=== PATIENT | male | born 1960 | race Caucasian/White ===

== ENCOUNTER 2016-06-11 14:20 | Inpatient (IN) | payer OTHER ==
[~2016-06-11] VITALS: Ht 188 cm; Wt 115.9 kg
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
[2016-06-11 15:28] LABS: BASOPHIL % 0.2 %; EOSINOPHIL % 0.1 %; HEMATOCRIT 33.9 % (37.0-53.0); HEMOGLOBIN 10.9 g/dL (12.0-17.0); IMMATURE GRANULOCYTE # 0.1 K/uL (0.0-0.3); IMMATURE GRANULOCYTE % 0.7 %; LYMPHOCYTE # 1.3 K/uL (0.8-4.0); LYMPHOCYTE % 6.4 %; MCH 31.8 pg (27.0-34.0); MCHC 32.2 gm/dL (32.0-36.5); MCV 98.8 fl (83.0-98.0); MONOCYTE # 1.8 K/uL (0.0-1.0); MONOCYTE % 8.9 %; MPV 10.3 fl (9.4-12.4); NEUTROPHIL # (ANC) 16.7 K/uL (1.4-9.0); NEUTROPHIL % 83.7 %; NRBC % 0 /100WBC (0-0.00); PLATELET COUNT 178 K/uL (150-450); RBC 3.43 M/uL (4.00-6.00); RDW-CV 12.5 % (11.9-14.6); WBC 19.9 K/uL (4.0-11.0)
[2016-06-11 15:33] LABS: BILIRUBIN URINE NEGATIVE (NEGATIVE); BLOOD URINE NEGATIVE /UL (NEGATIVE); COLOR URINE YELLOW (YELLOW); GLUCOSE URINE NEGATIVE (NEGATIVE); KETONE URINE NEGATIVE (NEGATIVE); LEUKOCYTES URINE NEGATIVE /UL (NEGATIVE); NITRITE URINE NEGATIVE (NEGATIVE); PROTEIN URINE 30 mg/dL (NEGATIVE); TURBIDITY URINE CLEAR (CLEAR); UROBILINOGEN URINE NORMAL (NORMAL)
[2016-06-11 15:43] LABS: WBC URINE 0-2 #/HPF (NEGATIVE)
[2016-06-11 15:44] LABS: AMORPHOUS URINE 1+ (NEGATIVE); BACTERIA URINE RARE (NEGATIVE); EPITHELIAL URINE RARE #/HPF (NEGATIVE); MUCUS URINE 1+ (NEGATIVE); RBC URINE NEGATIVE #/HPF (NEGATIVE)
[2016-06-11 15:48] LABS: ALBUMIN 2.8 gm/dL (3.5-5.0); ALK PHOS 45 IU/L (33-138); ALT 28 IU/L (12-78); ANION GAP 12.5 (10.0-19.0); AST 41 IU/L (10-40); BLOOD UREA NITROGEN 12 mg/dL (6-24); CALCIUM 7.7 mg/dL (8.5-10.5); CHLORIDE 114 mMol/L (96-110); CO2 24 mMol/L (22-32); CREATININE 1.2 mg/dL (0.6-1.3); ESTIMATED GFR (MDRD EQUATION) > 60; INR - (THERAPEUTIC) 1.1 (0.9-1.1); POTASSIUM 4.5 mMol/L (3.7-5.1); PROTIME 11.3 SECONDS (9.6-11.1); PTT 22 SECONDS (25-32); TOTAL BILIRUBIN 0.3 mg/dL (0.0-1.5); TOTAL PROTEIN 5.3 g/dL (6.0-8.4)
[2016-06-11 15:56] LABS: SODIUM 146 mMol/L (135-145)
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
[2016-06-11 21:20] LABS: BASOPHIL % 0.2 %; HEMATOCRIT 34.8 % (37.0-53.0); HEMOGLOBIN 11.2 g/dL (12.0-17.0); IMMATURE GRANULOCYTE # 0.1 K/uL (0.0-0.3); IMMATURE GRANULOCYTE % 0.4 %; LYMPHOCYTE % 5.5 %; MCH 31.8 pg (27.0-34.0); MCHC 32.2 gm/dL (32.0-36.5); MCV 98.9 fl (83.0-98.0); MONOCYTE # 1.5 K/uL (0.0-1.0); MONOCYTE % 8.3 %; NEUTROPHIL # (ANC) 14.9 K/uL (1.4-9.0); NEUTROPHIL % 85.6 %; NRBC % 0 /100WBC (0-0.00); PLATELET COUNT 155 K/uL (150-450); RBC 3.52 M/uL (4.00-6.00); RDW-CV 12.6 % (11.9-14.6); WBC 17.4 K/uL (4.0-11.0)
[2016-06-12 04:32] LABS: BICARBONATE 23.2 mmol/L (18.0-23.0); PCO2 45 mmHg (35-45); PO2 67 mmHg (80-90)
[2016-06-12 04:33] LABS: BASOPHIL % 0.1 %; HEMATOCRIT 33.3 % (37.0-53.0); HEMOGLOBIN 10.8 g/dL (12.0-17.0); IMMATURE GRANULOCYTE % 0.3 %; LYMPHOCYTE # 1.3 K/uL (0.8-4.0); LYMPHOCYTE % 9.4 %; MCH 31.9 pg (27.0-34.0); MCHC 32.4 gm/dL (32.0-36.5); MCV 98.2 fl (83.0-98.0); MONOCYTE # 1.6 K/uL (0.0-1.0); MONOCYTE % 11.6 %; MPV 10.1 fl (9.4-12.4); NEUTROPHIL # (ANC) 11.1 K/uL (1.4-9.0); NEUTROPHIL % 78.6 %; NRBC % 0 /100WBC (0-0.00); PLATELET COUNT 151 K/uL (150-450); RBC 3.39 M/uL (4.00-6.00); RDW-CV 12.6 % (11.9-14.6); WBC 14.1 K/uL (4.0-11.0)
[2016-06-12 04:42] LABS: PROTIME 10.7 SECONDS (9.6-11.1)
[2016-06-12 04:57] LABS: ALBUMIN 2.9 gm/dL (3.5-5.0); ALK PHOS 40 IU/L (33-138); ALT 42 IU/L (12-78); ANION GAP 16.3 (10.0-19.0); AST 80 IU/L (10-40); BLOOD UREA NITROGEN 15 mg/dL (6-24); CHLORIDE 109 mMol/L (96-110); CO2 21 mMol/L (22-32); CREATININE 1.1 mg/dL (0.6-1.3); ESTIMATED GFR (MDRD EQUATION) > 60; POTASSIUM 5.3 mMol/L (3.7-5.1); SODIUM 141 mMol/L (135-145); TOTAL BILIRUBIN 0.3 mg/dL (0.0-1.5); TOTAL PROTEIN 5.7 g/dL (6.0-8.4)
[2016-06-12 04:58] LABS: CALCIUM 7.2 mg/dL (8.5-10.5)
--- NOTE | 2016-06-12 05:31 | NUR ---
Significant Event: Patient is A/Ox3. Follows commands. Moves all extremities. Numbness/tingling to R)hand patient states has been present for years. CSM intact. HR's 90-100's. SBP 90's-130's. Map greater than 65. Afebrile. 1L NC to keep o2 sats greater than 90. 96-100% NPO. Hypoactive BS. NO BM. Brwon to DD with adeq UOP. Morphine BLEACHER LARD running 1mg/hr cont. Demand 1. 10min lock out. Ativan given for muscle spasms. Phenergan and zofran given for nausea. Log roll. Follow up: Surgery this AM.
[2016-06-12 17:17] LABS: BICARBONATE 19.1 mmol/L (18.0-23.0); PCO2 42 mmHg (35-45); PO2 171 mmHg (80-90)
[2016-06-12 17:18] LABS: POTASSIUM 4.8 mEq/L (3.7-5.1); SODIUM 136 mEq/L (135-145)
[2016-06-12 17:23] LABS: PCO2 46 mmHg (35-45); PO2 272 mmHg (80-90); POTASSIUM 5.6 mEq/L (3.7-5.1); SODIUM 134 mEq/L (135-145)
[2016-06-12 17:24] LABS: BICARBONATE 17.6 mmol/L (18.0-23.0); PCO2 41 mmHg (35-45); PO2 147 mmHg (80-90); POTASSIUM 5.6 mEq/L (3.7-5.1); SODIUM 135 mEq/L (135-145)
[2016-06-12 17:25] LABS: BICARBONATE 17.7 mmol/L (18.0-23.0); PCO2 41 mmHg (35-45); PO2 166 mmHg (80-90)
[2016-06-12 17:26] LABS: POTASSIUM 5.5 mEq/L (3.7-5.1); SODIUM 136 mEq/L (135-145)
[2016-06-12 21:24] LABS: PCO2 43 mmHg (35-45)
[2016-06-12 21:25] LABS: BASOPHIL % 0.1 %; BICARBONATE 23.2 mmol/L (18.0-23.0); HEMATOCRIT 27.5 % (37.0-53.0); HEMOGLOBIN 9.3 g/dL (12.0-17.0); IMMATURE GRANULOCYTE # 0.1 K/uL (0.0-0.3); IMMATURE GRANULOCYTE % 0.4 %; LACTATE 3.2 mEq/L (0.50-1.60); LYMPHOCYTE # 1.6 K/uL (0.8-4.0); LYMPHOCYTE % 12.3 %; MCH 31.6 pg (27.0-34.0); MCHC 33.8 gm/dL (32.0-36.5); MCV 93.5 fl (83.0-98.0); MONOCYTE # 1.5 K/uL (0.0-1.0); MONOCYTE % 11.8 %; MPV 10.3 fl (9.4-12.4); NEUTROPHIL # (ANC) 9.6 K/uL (1.4-9.0); NEUTROPHIL % 75.4 %; NRBC % 0 /100WBC (0-0.00); PO2 95 mmHg (80-90); RBC 2.94 M/uL (4.00-6.00); WBC 12.7 K/uL (4.0-11.0)
[2016-06-12 21:26] LABS: PLATELET COUNT 93 K/uL (150-450); RDW-CV 14.7 % (11.9-14.6)
[2016-06-12 21:35] LABS: INR - (THERAPEUTIC) 1.1 (0.9-1.1); PROTIME 11.6 SECONDS (9.6-11.1); PTT 29 SECONDS (25-32)
[2016-06-12 21:41] LABS: ALBUMIN 2.4 gm/dL (3.5-5.0); BLOOD UREA NITROGEN 17 mg/dL (6-24); CHLORIDE 112 mMol/L (96-110); CO2 23 mMol/L (22-32); ESTIMATED GFR (MDRD EQUATION) > 60; POTASSIUM 4.6 mMol/L (3.7-5.1)
[2016-06-12 21:43] LABS: ANION GAP 13.6 (10.0-19.0); CALCIUM 7.2 mg/dL (8.5-10.5); PHOSPHORUS 1.8 mg/dL (2.5-4.9); SODIUM 144 mMol/L (135-145)
[2016-06-13 04:22] LABS: BICARBONATE 26.6 mmol/L (18.0-23.0); PCO2 45 mmHg (35-45); PO2 95 mmHg (80-90)
[2016-06-13 04:55] LABS: ALBUMIN 2.2 gm/dL (3.5-5.0); ANION GAP 10.5 (10.0-19.0); BLOOD UREA NITROGEN 17 mg/dL (6-24); CHLORIDE 110 mMol/L (96-110); CO2 26 mMol/L (22-32); CREATININE 0.9 mg/dL (0.6-1.3); ESTIMATED GFR (MDRD EQUATION) > 60; POTASSIUM 4.5 mMol/L (3.7-5.1); SODIUM 142 mMol/L (135-145)
[2016-06-13 05:00] LABS: CALCIUM 7.3 mg/dL (8.5-10.5)
--- NOTE | 2016-06-13 05:23 | NUR ---
Significant Event: PATIENT REMAINS INTUBATED/SEDATED. HR'S 80'S-100'S. SBP 90'S-100'S. MAPS >65. AFEBRILE. SLIGHTLY COARSE-CLEAR LUNG SOUNDS. STACKING BREATHS FENT GTT STARTED AT 0100, CURRENTLY 100MCG/HR. NO BM. MORGAN TO DD WITH ADEQ UOP. TF WITH HIGHEST RESID OF 60ML. Follow up: CONTINUE ON CURRENT PLAN OF CARE. VENT MANAGEMENT.
[2016-06-13 05:43] LABS: HEMATOCRIT 24.9 % (37.0-53.0); HEMOGLOBIN 8.4 g/dL (12.0-17.0); MCH 31.6 pg (27.0-34.0); MCHC 33.7 gm/dL (32.0-36.5); MCV 93.6 fl (83.0-98.0); MPV 11.2 fl (9.4-12.4); PLATELET COUNT 96 K/uL (150-450); RBC 2.66 M/uL (4.00-6.00); RDW-CV 14.9 % (11.9-14.6); WBC 13.1 K/uL (4.0-11.0)
--- NOTE | 2016-06-13 06:47 | NUR ---
Significant Event: PATIENT REMAINS INTUBATED/SEDATED. FOLLOWS COMMANDS. WEAKER HAND GRASP TO R)SIDE COMPARED TO L) SIDE. WIGGLES TOES. CSM INTACT. ST 110'S. SBP 100'S-130'S. MAPS 70'S-80'S. R) ART LINE DC'D DURING SHIFT. TMAX 100.3. 2+ EDEMA. FACIAL EDEMA. AC MODE 40% FIO2 RR 15 PEEP 5, DOES HAVE CUFF LEAK. BILATERAL CT'S L) 650ML OUT. R) 250ML OUT. HEMO VAC TO L) LEG 40ML OUT. HEMO VAC TO BACK NO OUTPUT. MORGAN TO DD WITH ADEQ UOP. HYPOACTIVE BS. NO BM. OG TO LIS. SEE SKIN ASSESSMENT. MORPHINE TEMPLATE FITTER CONTINUES. Follow up: MONITOR HGB.
[2016-06-13 07:07] LABS: BANDED NEUTROPHIL # 2.4 K/uL (0.0-0.1); BANDED NEUTROPHILS % 18 %; LYMPHOCYTE # 1.8 K/uL (0.8-4.0); LYMPHOCYTE % 14 %; MONOCYTE # 0.3 K/uL (0.0-1.0); SEGMENTED NEUTROPHIL # 8.7 K/uL (1.4-9.0); SEGMENTED NEUTROPHIL % 66 %
--- NOTE | 2016-06-13 10:53 | NUR ---
REC PROMOTE @ 85 ML/HR.
--- NOTE | 2016-06-13 14:15 | NUR ---
Checked this a.m. and no family present. Talked to patient's nurse and reviewed chart. She says family has called and may be coming later today. Patient lives alone in [place]. Received call from patient's son, Noé asking if any assistance available to pay for hotel room or gas. Told him I will contact the [facility] to see if eligible for a one time $50 gift card. Form for [facility] completed and faxed to [facility]. Will follow.
--- NOTE | 2016-06-13 16:33 | NUR ---
Significant Event: PT sedated, intubated at 40% fiO2. Plans to extubate in AM. 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 OG to LIS, tube accidental dc by PT and replaced this shift. PT able to follow some commands, wiggles toes, squeezes hand. Halo intact. Chest tube x2 intact. Hemovac x2 intact. HOB >30 degrees. Follow up:
[2016-06-14 04:48] LABS: BICARBONATE 28.4 mmol/L (18.0-23.0); PCO2 40 mmHg (35-45)
[2016-06-14 04:50] LABS: PO2 69 mmHg (80-90)
--- NOTE | 2016-06-14 05:45 | NUR ---
PATIENT IS SEDATED WITH IV PROPOFOL AT 40 MEQ/KG/MIN,WILL NODE HEAD FOR YES OR NO,WILL SQUEEZE HANDS AND WIGGLE TOES,CLEAR UPPER LUNGS SOUND DIMINISHED ON THE BASES,THICK CREAMY SECRTIONS MODERATE AMOUNT,A/C VENT MODE,FIO2=40%,E7MOTC=99%,2 LATERAL CHEST TUBES TO -20 CM H2O SUCTION S.S DRAINAGE MODERATE AMOUNT. FOLLOW UP:CONTINUE TO MONITOR PATIENT'S HEMODYNAMIC AND RESPIRATORY STATUS CLOSELY.
[2016-06-14 06:00] LABS: ANION GAP 10.1 (10.0-19.0); BLOOD UREA NITROGEN 13 mg/dL (6-24); CALCIUM 7.7 mg/dL (8.5-10.5); CHLORIDE 109 mMol/L (96-110); CO2 28 mMol/L (22-32); CREATININE 0.6 mg/dL (0.6-1.3); ESTIMATED GFR (MDRD EQUATION) > 60; POTASSIUM 4.1 mMol/L (3.7-5.1); SODIUM 143 mMol/L (135-145)
[2016-06-14 06:01] LABS: ALBUMIN 1.8 gm/dL (3.5-5.0); PHOSPHORUS 1.3 mg/dL (2.5-4.9)
[2016-06-14 06:27] LABS: HEMATOCRIT 22.5 % (37.0-53.0); HEMOGLOBIN 7.4 g/dL (12.0-17.0); MCHC 32.9 gm/dL (32.0-36.5); MCV 94.1 fl (83.0-98.0); MPV 11.2 fl (9.4-12.4); PLATELET COUNT 104 K/uL (150-450); RBC 2.39 M/uL (4.00-6.00); RDW-CV 14.6 % (11.9-14.6); WBC 10.9 K/uL (4.0-11.0)
[2016-06-14 06:58] LABS: ABSOLUTE NEUTROPHIL CT (ANC) 9.2 K/uL (1.4-9.0); BANDED NEUTROPHIL # 1.3 K/uL (0.0-0.1); BANDED NEUTROPHILS % 12 %; LYMPHOCYTE # 0.9 K/uL (0.8-4.0); LYMPHOCYTE % 8 %; MONOCYTE # 0.8 K/uL (0.0-1.0); SEGMENTED NEUTROPHIL # 7.9 K/uL (1.4-9.0); SEGMENTED NEUTROPHIL % 72 %
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
--- NOTE | 2016-06-14 13:23 | NUR ---
ORDER RECD. PT CONT ON VENT WITH SEDATION. ST WILL F/U INDICATED.
--- NOTE | 2016-06-14 16:41 | NUR ---
PT VENTED ON 40% SATS 94-98%, BREATH SOUNDS SLIGHTLY COARSE THROUGHOUT WITH WHEEZES AT TIMES, ETCO2 32-38 MOST OF THE DAY, SXN A MODERATE AMOUNT OF CREAMY SPUTUM FROM PT, PT DIDN'T TOLERATE CPAP WELL TODAY, WILL CONTINUE TO MONITOR AND TRY TO WEAN
--- NOTE | 2016-06-14 16:59 | NUR ---
ALERT, SEDATED ON 40 OF PROPOFOL BUT FOLLOWS COMMANS AND HAS EQUAL STRENGTH. FAILED SBT D/T TACHYCARDIC AND TACHYPNEIC. T-MAX 99.9, 1U PRBC FOR 7.4 WITH AM LABS ORDERED. TF STARTED WITH GOAL OF 85MLS/HR. IVF CHANGED TO TKO, MORGAN WITH ADEQ UOP. L) AND R) CT WITH 220 AND AND 140 MLS RESPECTIVELY O/P. HEMOVAC DRAINS DC'D AND DRSGS CHANGED TO BACK AND LLE. MS GEARMAN CONTINUES.
[2016-06-15 04:42] LABS: BICARBONATE 29.8 mmol/L (18.0-23.0); PCO2 40 mmHg (35-45); PO2 71 mmHg (80-90)
--- NOTE | 2016-06-15 05:01 | NUR ---
No changes made to vent settings this shift. FiO2 currently at 40% for O2 sats of 94-96%. ETCO2 was 33-38 throughout the shift. Breathsounds coarse rales throughout bilaterally. Suctioning moderate amounts of thick yellow/creamy secretions. ETT was secured with a new ETAD. Inline suction catheter was changed out this shift. Will continue to monitor patient.
[2016-06-15 05:08] LABS: ALK PHOS 55 IU/L (33-138); ALT 36 IU/L (12-78); ANION GAP 10.4 (10.0-19.0); AST 70 IU/L (10-40); BLOOD UREA NITROGEN 16 mg/dL (6-24); CHLORIDE 108 mMol/L (96-110); CO2 29 mMol/L (22-32); CREATININE 0.7 mg/dL (0.6-1.3); ESTIMATED GFR (MDRD EQUATION) > 60; POTASSIUM 4.4 mMol/L (3.7-5.1); SODIUM 143 mMol/L (135-145); TOTAL PROTEIN 5.3 g/dL (6.0-8.4)
[2016-06-15 05:10] LABS: ALBUMIN 1.7 gm/dL (3.5-5.0); CALCIUM 7.1 mg/dL (8.5-10.5); TOTAL BILIRUBIN 0.5 mg/dL (0.0-1.5)
[2016-06-15 05:14] LABS: HEMATOCRIT 24.1 % (37.0-53.0); MCH 31.3 pg (27.0-34.0); MCHC 33.2 gm/dL (32.0-36.5); MCV 94.1 fl (83.0-98.0); MPV 10.6 fl (9.4-12.4); PLATELET COUNT 145 K/uL (150-450); RBC 2.56 M/uL (4.00-6.00); RDW-CV 14.9 % (11.9-14.6); WBC 10.6 K/uL (4.0-11.0)
[2016-06-15 05:42] LABS: ABSOLUTE NEUTROPHIL CT (ANC) 8.5 K/uL (1.4-9.0); BANDED NEUTROPHIL # 3.1 K/uL (0.0-0.1); BANDED NEUTROPHILS % 29 %; LYMPHOCYTE # 1.8 K/uL (0.8-4.0); LYMPHOCYTE % 17 %; MONOCYTE # 0.2 K/uL (0.0-1.0); SEGMENTED NEUTROPHIL # 5.4 K/uL (1.4-9.0); SEGMENTED NEUTROPHIL % 51 %
--- NOTE | 2016-06-15 05:47 | NUR ---
patient is slightly sedated with iv propofol at 40meq/kg/min,occasionally will follow simple commands squeeze lt hand and wiggle both toes,pupils are 3mm rounded equal and react to light,clear upper lungs sound diminished on the bases,thick creamy/greenish secrtions when suctioned,A/C vent mode fio2=40%,peep=8,i5crtr=90%.tolerate t.f at 85ml/h. FOLLOW UP:continue to monitor patient's hemodynamic and respiratory status closely.
--- NOTE | 2016-06-15 11:49 | NUR ---
A - NUT F/U. VENT. SEDATED ON PROPOFOL (766 LIPID KCAL). SKIN BREAKDOWN FROM PROLONGED SURGERY. PRBCS GIVEN. 1-2+ EDEMA. HALO. LABS: ACCUCHECK WNL-REAS, GLU 152, ALB 1.7, PHOS 2.1, HGB/HCT 8.0/24.1 MEDS: SSI, BOWEL/NAUSEA, PROTONIX DIET: PROMOTE @ 85 ML/HR VIA OG. NO RESIDUALS. PROVIDES 2040 KCAL (2806 W/ PROPOFOL), 128 G PRO, 1712 ML FREE WATER NEEDS: 7772-3118 KCAL, 121-145 G PRO D - DIFFICULTY SWALLOWING R/T VENT SUPPORT AEB NEED FOR ENTERAL NUTRITION. I - GOAL FOR ENTERAL NUTRITION TOLERANCE. M/E - WILL MONITOR TF. F/U IN 2-3 DAYS.
--- NOTE | 2016-06-15 16:09 | NUR ---
Significant Event:REMAINS ON 40% AND PEEP 8. SUCTIONING COPIOUS FROM ETT AND ORAL. ETT SECRETIONS GREENISH. MINI BAL DONE TODAY D/T INCREASED SECRETIONS AND TEMP. HALO SCREWS TIGHTENED TODAY. FAILED CPAP TRIAL. NO BM, HYPOACTIVE BOWEL SOUNDS. ANTIBIOTICS STARTED TODAY. Follow up:WILL DO DAILY CPAP TRIALS, MONITOR SPUTUM CULTURE
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
[2016-06-16 04:34] LABS: BICARBONATE 31.9 mmol/L (18.0-23.0); PCO2 47 mmHg (35-45); PO2 72 mmHg (80-90)
--- NOTE | 2016-06-16 04:36 | NUR ---
PT REMAINS INTUBATED AND SEDATED ON 40 MCG/KG/MIN OF PROPOFOL. SEDATION VACATION PERFORMED; PATIENT DID NOT TOLERATE SO PROPOFOL RESTARTED AT 20 MCG/KG/MIN AND WEANED UP TO 40 MCG/KG/MIN FOR COMFORT. DOES NOT FOLLOW COMMANDS. OPENS EYES SPONTANEOUSLY WHEN NOT SEDATED, OPENS EYES TO VOICE WHEN SEDATED. MOVES ALL EXTREMITIES SPONTANEOUSLY AND PURPOSEFULLY. REMAINS RESTRAINED FOR SAFETY. TMAX 101.1, NO MEDICATION GIVEN, RESOLVED WITH FAN. SR-ST ON MONITOR, BP NORMOTENSIVE, EDEMETOUS. OVERBREATHES VENT, LUNGS SLIGHTLY COARSE TO COARSE THROUGHOUT. NO BM THIS SHIFT, BS PRESENT, FLATUS PRESENT. UOP GOOD, URINE APPEARS TURBID AND REGULO IN COLOR. NO NEW SKIN ISSUES. CHEST TUBE #1 WITH 50 ML OUT, CHEST TUBE #2 WITH 110 MLS OUT THIS SHIFT. CVL CAPS CHANGED, TUBING CHANGED. MARIO BURRELL RN
--- NOTE | 2016-06-16 05:23 | NUR ---
Patieint remained on 40% through out this shift with saturations in the mid 90's. End tidal has ran 38-43. Breath sounds have been mostly clear and diminised to slightly coarse on the right and more coarse to slightly coarse on the left. Suctioning moderate to large amounts for thick green sputum every 1-2 hours. Will continue to monitor.
--- NOTE | 2016-06-16 12:45 | NUR ---
Speech Tx Note: This service continues to monitor pt's medical status. Pt continues to be intubated. Would recommend when pt is extubated that pt receive a modified barium swallow in order to accurately determine pt's oral/pharyngeal swallow. Will continue to follow-up and initiate speech Tx services when pt's medical status allows. Lakshmi Skinner M.A., CCC-TYPE CUTTER
--- NOTE | 2016-06-16 13:27 | NUR ---
Significant Event: Sedated on propofol, sedation vacation and CPAP trialed x2 this shift. Morphine BIT SETTER dc'd and Oxycodone scheduled started. Followed commands when vacated from sedation. Withdraws x4. PERRLA. A/C FIO2 40%. Bilateral chest tubes to suction, serosangenous drainage. OG with promote TF at 85 ml/hr, goal. Brown catheter intact. Dressing to back intact. Dressing to L) leg intact. Halo intact. L) subclavian quad lumen infusing Propofol, intermittent antibiotics. Bilateral wrist restraints. Pericares provided. Oral cares q4h. Repositioned q2h. Family at bedside. Follow up: monitor.
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
[2016-06-17 03:38] LABS: ANION GAP 9.2 (10.0-19.0); BLOOD UREA NITROGEN 21 mg/dL (6-24); CALCIUM 7.6 mg/dL (8.5-10.5); CHLORIDE 110 mMol/L (96-110); CO2 31 mMol/L (22-32); CREATININE 0.7 mg/dL (0.6-1.3); ESTIMATED GFR (MDRD EQUATION) > 60; MAGNESIUM 2.4 mg/dL (1.3-2.6); PHOSPHORUS 2.4 mg/dL (2.5-4.9); POTASSIUM 4.2 mMol/L (3.7-5.1)
[2016-06-17 03:40] LABS: SODIUM 146 mMol/L (135-145)
[2016-06-17 03:42] LABS: HEMATOCRIT 22.2 % (37.0-53.0); MCV 97.4 fl (83.0-98.0); MPV 9.9 fl (9.4-12.4); RBC 2.28 M/uL (4.00-6.00); RDW-CV 14.9 % (11.9-14.6)
[2016-06-17 03:43] LABS: MCH 30.7 pg (27.0-34.0); MCHC 31.5 gm/dL (32.0-36.5); PLATELET COUNT 204 K/uL (150-450); WBC 16.8 K/uL (4.0-11.0)
[2016-06-17 04:46] LABS: BICARBONATE 34.4 mmol/L (18.0-23.0); PCO2 53 mmHg (35-45); PO2 83 mmHg (80-90)
--- NOTE | 2016-06-17 05:13 | NUR ---
Patient remained on 40% FiO2 through out the shift with saturations 92-98%. End tidal ran 38-45. Patient has been slightly coarse to coarse, greater on the left. Suctioning moderate to large amounts of thick yellow/green sputum. Will continue to monitor.
[2016-06-17 05:19] LABS: ABSOLUTE NEUTROPHIL CT (ANC) 13.3 K/uL (1.4-9.0); BANDED NEUTROPHIL # 2.4 K/uL (0.0-0.1); BANDED NEUTROPHILS % 14 %; LYMPHOCYTE # 1.7 K/uL (0.8-4.0); LYMPHOCYTE % 10 %; SEGMENTED NEUTROPHIL # 10.9 K/uL (1.4-9.0); SEGMENTED NEUTROPHIL % 65 %
--- NOTE | 2016-06-17 06:59 | NUR ---
PT REMAINS INTUBATED AND SEDATED. PROPOFOL DECREASED TO 25 MCG/KG/MIN THIS SHIFT. VERY FEW EPISODES OF ST; HR 80S-90S MOST OF SHIFT. HYPOTENSIVE AT TIMES, BUT MAPS >65. AFEBRILE. LUNGS CLEARING, SECREACTIONS NOW THINNER AND WHITE/CREAM. CONTINUES TO TOLERATE TF WELL. BS PRESENT, NO BM THIS SHIFT DESPITE PRN MOM GIVEN. UOP GOOD, TURBID/REGULO IN APPEARANCE. NO NEW OR WORSENING SKIN ISSUES. ALL LINES REMAIN INTACT AND PATENT. MARIO BURRELL RN
--- NOTE | 2016-06-17 09:44 | NUR ---
A - NUT F/U. VENT. SEDATED ON PROPOFOL. HALO. 1-2+ EDEMA. LABS: ACCUCHECK WNL-REAS, NA 146, GLU 153, PHOS 2.4, WBC 16.8, HGB/HCT 7.0/22.2 MEDS: LASIX, VANCO, LEVAQUIN, MAXIPIME, SSI, BOWEL/NAUSEA, PROTONIX DIET: PROMOTE @ 85 ML/HR VIA OG. MIN RESIDUALS. PROVIDES 2040 KCAL, 128 G PRO, 1712 ML FREE WATER. NEEDS: 2803-9586 KCAL, 121-145 G PRO D - DIFFICULTY SWALLOWING R/T VENT SUPPORT, HALO AEB NEED FOR ENTERAL NUTRITION. I - GOAL FOR CONTINUED ENTERAL NUTRITION TOLERANCE. M/E - WILL MONITOR TF F/U IN 3-4 DAYS
--- NOTE | 2016-06-17 16:03 | NUR ---
Pt continued in A/C mode, 40% Fio2. CPAP trial for 40 minutes until Pt's RR 35-40. Lung sounds slightly coarse uppers, sxn moderate thick yellow/cream. Lung sounds clear/diminished post sxn. Will continue to monitor and cpap trials at tolerated
--- NOTE | 2016-06-17 16:25 | NUR ---
Significant Event:Patient sedated on propofol, follows commands x 4 extremities, pain continues to seem to be an issue, Dr Hudson increased pain meds and patient alternated Q2H with Oxycodone and [place] with Dilaudid for breakthrough, pain still seems to be an issue, remains in SR, VSS, tolerated CPAP trial for 40 minutes today, pt on senna BID as No BM yet, craig with +UOP = 3200 mls, scheduled lasix given x 2 IV, no residuals and Promote TF @ goal of 85mls/hr Follow up:Continue to try to wean sedation and vent, work on pain control
--- NOTE | 2016-06-17 17:48 | NUR ---
Margarita from [facility] will be here Monday to see patients so referral made to her. Attempted to call son, Noé but no answer. Called ex Kaity and talked with her regarding Sara. She is fine with Sara looking at him and either she or Noé will be here on Monday to talk with Margarita from [facility]. Will follow.
[2016-06-18 04:25] LABS: BICARBONATE 35.6 mmol/L (18.0-23.0); PCO2 50 mmHg (35-45); PO2 79 mmHg (80-90)
--- NOTE | 2016-06-18 04:51 | NUR ---
No vent changes made this shift. Continues on FiO2 40%, Peep 8. EtCO2 40s most of shift. BrSs diminished lung bases. Suctioned large amounts of yellow, thick secretions from ETT. Sedation fluctuated t/o night, patient easily aggitated and biting on ETT (pt tongues out bite block). Continue to work toward weaning from ventilator as tolerated.
[2016-06-18 05:04] LABS: ANION GAP 9.2 (10.0-19.0); BLOOD UREA NITROGEN 20 mg/dL (6-24); CALCIUM 7.8 mg/dL (8.5-10.5); CHLORIDE 107 mMol/L (96-110); CO2 33 mMol/L (22-32); CREATININE 0.6 mg/dL (0.6-1.3); ESTIMATED GFR (MDRD EQUATION) > 60; MAGNESIUM 2.3 mg/dL (1.3-2.6); PHOSPHORUS 2.7 mg/dL (2.5-4.9); POTASSIUM 4.2 mMol/L (3.7-5.1); SODIUM 145 mMol/L (135-145)
[2016-06-18 05:12] LABS: HEMATOCRIT 24.2 % (37.0-53.0); MCV 97.6 fl (83.0-98.0); RBC 2.48 M/uL (4.00-6.00); RDW-CV 14.9 % (11.9-14.6); WBC 15.7 K/uL (4.0-11.0)
[2016-06-18 05:14] LABS: HEMOGLOBIN 7.5 g/dL (12.0-17.0); MCH 30.2 pg (27.0-34.0); PLATELET COUNT 271 K/uL (150-450)
--- NOTE | 2016-06-18 05:20 | NUR ---
Significant Event: Propfol at 40 mcg/kg/min. Follows commands when propofol is decreased. Spontaneous and purposeful x4 extremities. ROMANA. VSS. A/C 40%. OG infusing TF at 85 ml/hr. Residuals 20-50ml. Active bowel sounds. No BM. [place] 2 tabs given x1. Follow up: CPAP trials and pain control
[2016-06-18 06:34] LABS: ABSOLUTE NEUTROPHIL CT (ANC) 12.6 K/uL (1.4-9.0); BANDED NEUTROPHIL # 1.3 K/uL (0.0-0.1); BANDED NEUTROPHILS % 8 %; LYMPHOCYTE # 1.3 K/uL (0.8-4.0); LYMPHOCYTE % 8 %; MONOCYTE # 0.9 K/uL (0.0-1.0); SEGMENTED NEUTROPHIL # 11.3 K/uL (1.4-9.0); SEGMENTED NEUTROPHIL % 72 %
--- NOTE | 2016-06-18 16:37 | NUR ---
Significant Event: PT sedated, propofol at 40mcg/kg/min. VSS, remains vented in a/c 40%fio2. Halo intact. Bilateral chest tubes intact. Brown patent. L)subclavian central line patent. PT repositioned side to side with log rolling. Pain controlled with scheduled oxy and tylenol. [place] 1 tab given at 1515. Last BM was 06/11, MOM given, no results yet, active bowel sounds. May get PT out of bed to chair. Follow up:
--- NOTE | 2016-06-18 17:06 | NUR ---
No changes to vent settings t/o shift, continued on 40% Fio2, Peep 8. Attempted CPAP 8/PS 12 for 1 hr, RR increased mid 30s to 40s. Pain an issue. Returned to A/C mode, RR decreased to 20s and appeared more comfortable. Lung sounds diminished bases, occ slightly coarse uppers, sxn moderate thick cream/yellow. Will continue with CPAP trials and wean vent as tolerated
--- NOTE | 2016-06-19 02:48 | NUR ---
No vent changes made this shift. BrSs clear and diminished bases. Continue to suction large amounts of thick, yellow secretions from ETT. EtCO2 40s most of shift. On propofol for sedation and receives pain medication, still restless at times. Continue to work on pain management and weaning ventilator.
[2016-06-19 03:56] LABS: ANION GAP 10.5 (10.0-19.0); BLOOD UREA NITROGEN 21 mg/dL (6-24); CALCIUM 8.1 mg/dL (8.5-10.5); CHLORIDE 105 mMol/L (96-110); CO2 31 mMol/L (22-32); CREATININE 0.6 mg/dL (0.6-1.3); ESTIMATED GFR (MDRD EQUATION) > 60; MAGNESIUM 2.1 mg/dL (1.3-2.6); PHOSPHORUS 2.8 mg/dL (2.5-4.9); POTASSIUM 4.5 mMol/L (3.7-5.1); SODIUM 142 mMol/L (135-145)
[2016-06-19 04:08] LABS: HEMATOCRIT 23.1 % (37.0-53.0); MCV 97.5 fl (83.0-98.0); MPV 9.6 fl (9.4-12.4); RBC 2.37 M/uL (4.00-6.00); RDW-CV 14.9 % (11.9-14.6); WBC 12.8 K/uL (4.0-11.0)
[2016-06-19 04:10] LABS: HEMOGLOBIN 7.4 g/dL (12.0-17.0); MCH 31.2 pg (27.0-34.0); PLATELET COUNT 330 K/uL (150-450)
[2016-06-19 04:16] LABS: BICARBONATE 35.7 mmol/L (18.0-23.0); PCO2 49 mmHg (35-45); PO2 83 mmHg (80-90)
[2016-06-19 04:47] LABS: ABSOLUTE NEUTROPHIL CT (ANC) 9.7 K/uL (1.4-9.0); BANDED NEUTROPHIL # 0.9 K/uL (0.0-0.1); BANDED NEUTROPHILS % 7 %; LYMPHOCYTE # 1.4 K/uL (0.8-4.0); LYMPHOCYTE % 11 %; SEGMENTED NEUTROPHIL # 8.8 K/uL (1.4-9.0); SEGMENTED NEUTROPHIL % 69 %
--- NOTE | 2016-06-19 05:50 | NUR ---
Significant Event: Patient sedated on 50 mcg/kg/min of propofol. Will not follow commands at this amount, but will at lower amounts. Spontaneous and purposeful x4 extremities. Restless. VSS. A/C 40%. [place] CTs drained 50 and 20 mls of serousanguinous fluid. No crepitus. OG infusing TF at 85 ml/hr. Max res 50 ml. Active bowel sounds. No BM. Suppository given. Brown drained adequate urine. [place] 1 tab given x1 with some relief. Follow up: Pain control and CPAP trials
--- NOTE | 2016-06-19 14:48 | NUR ---
Pt continued on 40% Fio2, Peep 8. Changed to CPAP 8/PS 12 around 0900. Tolerated well t/o shift, decreased Peep to 5 and PS to 8. Weaning parameters met NIF -39, VC 1330. Extubated Pt at 1405 to 6L NC. PRN Bipap order for NOC. Will continue to monitor and wean
--- NOTE | 2016-06-19 17:17 | NUR ---
Significant Event: Extubated at 1405 to 6L. Pt is alert oriented, disoriented to date/place, but reorients quickly. Moves all extremities, follows commands. Failed bedside swollow study. Attempted to plave dobhoff unsuccessfully. Dilaudid IVP given x 2, holding all PO meds for now. 3 moderate stools. Follow up: continue plan of care
--- NOTE | 2016-06-20 04:32 | NUR ---
Significant Event: A/Ox3. VSS. 3L NC. Coarse lung sounds. Good cough. Large amount of blood tinged sputum. Dobhoff to R) nare at 80 cm. Bm x2. Hyperactive bowel sounds. Brown drained adequate urine. Dilaudid x1 for pain with relief. Pain well controlled tonight. Follow up: Change status
[2016-06-20 04:42] LABS: ANION GAP 10.6 (10.0-19.0); BLOOD UREA NITROGEN 27 mg/dL (6-24); CALCIUM 8.5 mg/dL (8.5-10.5); CHLORIDE 105 mMol/L (96-110); CO2 32 mMol/L (22-32); CREATININE 0.7 mg/dL (0.6-1.3); ESTIMATED GFR (MDRD EQUATION) > 60; MAGNESIUM 2.3 mg/dL (1.3-2.6); PHOSPHORUS 4.2 mg/dL (2.5-4.9); POTASSIUM 4.6 mMol/L (3.7-5.1); SODIUM 143 mMol/L (135-145)
[2016-06-20 04:47] LABS: HEMATOCRIT 24.5 % (37.0-53.0); MCV 97.2 fl (83.0-98.0); MPV 9.2 fl (9.4-12.4); RBC 2.52 M/uL (4.00-6.00); RDW-CV 14.8 % (11.9-14.6)
[2016-06-20 04:51] LABS: HEMOGLOBIN 7.7 g/dL (12.0-17.0); MCH 30.6 pg (27.0-34.0); MCHC 31.4 gm/dL (32.0-36.5); PLATELET COUNT 399 K/uL (150-450); WBC 16.1 K/uL (4.0-11.0)
[2016-06-20 06:22] LABS: ABSOLUTE NEUTROPHIL CT (ANC) 11.3 K/uL (1.4-9.0); BANDED NEUTROPHIL # 2.4 K/uL (0.0-0.1); BANDED NEUTROPHILS % 15 %; LYMPHOCYTE # 2.3 K/uL (0.8-4.0); LYMPHOCYTE % 14 %; MONOCYTE # 1.9 K/uL (0.0-1.0); SEGMENTED NEUTROPHIL # 8.9 K/uL (1.4-9.0); SEGMENTED NEUTROPHIL % 55 %
--- NOTE | 2016-06-20 11:06 | NUR ---
A - NUT F/U. EXTUBATED. FAILED BEDSIDE SWALLOW EVAL. SPEECH TO EVAL TODAY. DISORIENTED. HALO. 1+ EDEMA. LABS: ACCUCHECK WNL-REAS, GLU 111, BUN/CR 27/0.7, WBC 16.1, HGB/HCT 7.7/24.5 MEDS: LASIX, SSI, BOWEL/NAUSEA, LEVAQUIN DIET: PROMOTE @ 85 ML/HR ON HOLD. PROVIDES 2040 KCAL, 128 G PRO, 1712 ML FREE WATER. NEEDS: 2872-9953 KCAL, 121-145 G PRO D - DIFFICULTY SWALLOWING R/T HALO, RECENT EXTUBATION AEB FAILED BEDSIDE SWALLOW RESULTS. I - GOAL FOR NUTRITION TO BE RESTART W/IN 24-48 HRS. M/E - WILL MONITOR SWALLOW EVAL, DIET F/U IN 2-3 DAYS
--- NOTE | 2016-06-20 15:27 | NUR ---
PT A/OX3, REPETITIVE AT TIMES, DENIES ANY N/T, NO C/O H/A AND HAS EQUAL BUT WEAK STRENGTH T/O WITH PERRL. VSS, HR 80-90'S, NO ECTOPY, SBP 100-120'S, MAP'S 80-100'S, PULSES 2+ T/O, WITH GEN 1+ EDEMA. T-MAX 98.8, P/W/D. LS SLC AND DIM TO BILAT BASES, R) CT WITH 40MLS SEROSANG O/P, AND L) CT WITH 100MLS SEROSANG O/P. WEAK PROD COUGH OF MODERATE CREAMY SECRETIONS AND USES [place] AT BEDSIDE, WITH RR 20-30'S, SATS 90-95%. MORGAN WITH ADEQ UOP, CONTINUES TO BE DIURESED WITH I/O -864 THIS SHIFT, BM X2 SMALL, BS HYPERACTIVE. SWALLOW EVAL WITH OK TO HAVE ICE CHIPS AND WILL RE-EVAL IN AM FOR FURTHER REC'S; R) REMAINS FOR MEDS AT 80CM. CT DRSG, SCATTERED ABR, AND ECCHYMOSIS ALONG WITH BACK INCISION AND LLE EXT DRSG REVIEWD BY WOC AND STAFF. HALO RE-ADJUSTED PER SOLUTION PROFESSIONAL REP. CAIT OXY GIVEN ALONG WITH TYLENOL, UP WITH PT/OT AND RN WITH MODERATE ASSISTANCE AND GAIT BELT WITH WALKER; PT TOLERATED WELL.
--- NOTE | 2016-06-21 03:54 | NUR ---
Significant Event: A/OX3. VSS. 3L NC. Bilateral CTs drained 20 ml serosang drainage each. No BM. Pain well controlled. Refused bath and refused to turn during shift. Follow up: Change status
[2016-06-21 04:42] LABS: ANION GAP 12.3 (10.0-19.0); BLOOD UREA NITROGEN 27 mg/dL (6-24); CALCIUM 8.1 mg/dL (8.5-10.5); CHLORIDE 104 mMol/L (96-110); CO2 31 mMol/L (22-32); CREATININE 0.6 mg/dL (0.6-1.3); ESTIMATED GFR (MDRD EQUATION) > 60; MAGNESIUM 1.9 mg/dL (1.3-2.6); PHOSPHORUS 3.4 mg/dL (2.5-4.9); POTASSIUM 4.3 mMol/L (3.7-5.1); SODIUM 143 mMol/L (135-145)
[2016-06-21 05:23] LABS: HEMATOCRIT 24.1 % (37.0-53.0); MCH 30.6 pg (27.0-34.0); MCHC 31.1 gm/dL (32.0-36.5); MCV 98.4 fl (83.0-98.0); MPV 9.2 fl (9.4-12.4); PLATELET COUNT 449 K/uL (150-450); RBC 2.45 M/uL (4.00-6.00); RDW-CV 14.8 % (11.9-14.6)
[2016-06-21 05:26] LABS: HEMOGLOBIN 7.5 g/dL (12.0-17.0); WBC 17.2 K/uL (4.0-11.0)
[2016-06-21 06:18] LABS: ABSOLUTE NEUTROPHIL CT (ANC) 11.5 K/uL (1.4-9.0); BANDED NEUTROPHIL # 2.2 K/uL (0.0-0.1); BANDED NEUTROPHILS % 13 %; LYMPHOCYTE # 2.4 K/uL (0.8-4.0); LYMPHOCYTE % 14 %; MONOCYTE # 2.4 K/uL (0.0-1.0); SEGMENTED NEUTROPHIL # 9.3 K/uL (1.4-9.0); SEGMENTED NEUTROPHIL % 54 %
--- NOTE | 2016-06-21 12:43 | NUR ---
Significant Event: Alert and oriented x3. Follows commands. Up to chair with 2 assist, gaitbelt, walker. Scheduled Oxycodone and tylenol for pain. Bilateral chest tubes removed by Porsha Delacruz, dressings changed. Dressing to L) leg changed. 3L NC. Dobhoff to R) nare changed due to being clogged, okay to use per Dr. Pearson. Sara came to see patient. Speech evaluated and still failing so okay for ice chips only. Promote Tube feedings to be started at 40 ml/hr and goal of 85 ml/hr. L) subclavian quad lumen saline locked. Bathed this shift and shaved. Oral cares q4h. Brown catheter dc'd this am has not voided at this time. Transferring to NTU. Follow up: transfer to NTU.
--- NOTE | 2016-06-21 17:17 | NUR ---
Margarita from [facility] here earlier today to assess patient. His nurse reported family called and they were running late, so they will touchbase with me when they get here. Have checked several times this afternoon and family has not arrived. Will follow.
--- NOTE | 2016-06-21 19:42 | NUR ---
Significant Event: Patient transferred from ICU to NTU at 1415. a/o x 3. pain to back surgical site. routine tylenol and routine roxycodone for pain management. denies numbness/tingling. equal strength throughout. lung sounds coarse. continues on 3 liters of oxygen. ambulates with walker/gait belt and two assist. generalized edema. NPO except for ice chips. dobhoff to right nare with tube feeding started at 1600 at 40ml/hr- goal is 85ml/hr. DSGs C/D/I to bilateral chest tube sites. Suctions self PRN with tay. scott to surgical site to back open to air. Mepilex dsg to left lower extremity skin graft site C/D/I. voids 650 per urinal without difficulty. Left quad lumen subclavian saline locked. Family came to the room after 1800. Stated they will call care management tomorrow. Number given to care management office. Discharge plan- [facility] when ready. Patient stated possibly by this weekend.
--- NOTE | 2016-06-22 04:04 | NUR ---
Significant Event: Patient a/ox3. Denies numbness and tingling. Moves all extremities spontaneously and to command. Moderate, equal strength. Up to bathroom with 2 assist, gait belt, walker. NPO. Dobhoff to right nare running at 70ml/hr - goal of 85ml/hr. Residuals of 0. Dressing to left leg c/d/i. Halo intact - pin site care of half hydrogen peroxide/half water performed. On scheduled oxycodone and tylenol for pain. Ice chips only. Left subclavian quad lumen IV saline locked. Small BM this shift. VSS on 3L of O2. Lungs clear and diminished. Darnell to back open to air. Right knee brace on when out of bed. Bilateral chest tube dressings c/d/i. Follow up: [place]
[2016-06-22 04:20] LABS: ANION GAP 11.1 (10.0-19.0); BLOOD UREA NITROGEN 25 mg/dL (6-24); CALCIUM 8.1 mg/dL (8.5-10.5); CHLORIDE 102 mMol/L (96-110); CO2 32 mMol/L (22-32); CREATININE 0.6 mg/dL (0.6-1.3); ESTIMATED GFR (MDRD EQUATION) > 60; MAGNESIUM 1.7 mg/dL (1.3-2.6); PHOSPHORUS 3.2 mg/dL (2.5-4.9); POTASSIUM 4.1 mMol/L (3.7-5.1); SODIUM 141 mMol/L (135-145)
[2016-06-22 04:42] LABS: HEMATOCRIT 24.1 % (37.0-53.0); MCHC 30.7 gm/dL (32.0-36.5); MCV 97.6 fl (83.0-98.0); MPV 9.3 fl (9.4-12.4); PLATELET COUNT 475 K/uL (150-450); RBC 2.47 M/uL (4.00-6.00); RDW-CV 14.5 % (11.9-14.6)
[2016-06-22 04:50] LABS: HEMOGLOBIN 7.4 g/dL (12.0-17.0); WBC 17.2 K/uL (4.0-11.0)
[2016-06-22 05:29] LABS: ABSOLUTE NEUTROPHIL CT (ANC) 12.4 K/uL (1.4-9.0); BANDED NEUTROPHIL # 4.5 K/uL (0.0-0.1); BANDED NEUTROPHILS % 26 %; LYMPHOCYTE # 2.4 K/uL (0.8-4.0); LYMPHOCYTE % 14 %; MONOCYTE # 1.5 K/uL (0.0-1.0); SEGMENTED NEUTROPHIL # 7.9 K/uL (1.4-9.0); SEGMENTED NEUTROPHIL % 46 %
--- NOTE | 2016-06-22 11:54 | NUR ---
A - NUT F/U. HALO. CONSTIPATION. 1+ EDEMA. LABS: ACCUCEHCK WNL-REAS, GLU 123, BUN/CR 25/0.6, WBC 17.2, HGB/HCT 7.4/24.1 MEDS: NEUTRA-PHOS, LASIX, BOWEL/NAUSEA, PROTONIX, LEVAQUIN DIET: PROMOTE @ 85 ML/HR VIA DOBHOFF. NO RESIDUALS. CURRENTLY RUNNING @ 70 ML/HR D/T HAVING TO STOP AND RESTART TF. PLAN TO ADVANCE TO GOAL RATE OF 85 ML/HR. NEEDS: 7094-0162 KCAL, 121-145 G PRO D - DIFFICULTY SWALLOWING R/T NEUROMUSCULAR DYSFUNCTION AEB C-SPINE FXS, NEED FOR ENTERAL NUTRITION. I - GOAL FOR ENTERAL NUTRITION TOLERANCE. REC INCREASING RATE TO 95 ML/HR W/ 100 ML WATER Q6 HRS TO PROVIDE 2280 KCAL, 143 G PRO, 1913 ML FREE WATER (+FLUSH) M/E - WILL MONITOR POC, TF F/U IN 2-3 DAYS.
--- NOTE | 2016-06-22 12:05 | NUR ---
Spoke with patient regarding discharge plans. He says he wants to go to [facility] if they will accept him. He says his son will be here later today. Await decision from [facility] regarding acceptance. Will follow.
--- NOTE | 2016-06-22 16:46 | NUR ---
Talked to Margarita at [facility] early afternoon and she says to fax update later today. She says they don't have an opening right now, but will meet in the a.m. as do have some discharges for later this week. She says they will have to contact his insurance co for preauth once they know when they will have a bed. Spoke with patient's sister and updated her. She has been talking to Kaity and Noé and texted them while we were talking. She also had questions regarding disability and medication applications. She says [facility] staff have not contacted Kaity yet. Called Adiel and Erica will come and talk with his sister. Information faxed to [facility] and await their decision and timing. Anticipate transfer to [facility] later this week or early next week. Will follow.
--- NOTE | 2016-06-22 17:33 | NUR ---
Significant Event: Patient alert and oriented x3. Denies numbness/tingling. Calls frequently. Halo intact. Moves all extremities spontaneously and to command. VSS, on 2L O2. Voids per urinal/bathroom. Dobhoff to R) nare feeding at 85 mL/hr. Incision to lumbar back, open to air. R) knee brace. Mepilex to L) schreiber from skin graft. Incisions to sides, open to air. Receiving scheduled tylenol and oxycodone for pain. L) subclavian present, saline locked. Needs to be discontinued and peripheral IV started. Follow up: VS/neuros q 4 hours. Up with 2PA. NPO, may have ice chips. Tube feeds.
--- NOTE | 2016-06-23 03:41 | NUR ---
Significant Event: Patient a/ox3. Denies nubmness and tingling. Moves all extremities spontaneously and to command. Moderate equal strength. Up to bathroom 2 assist, gait belt, walker. NPO - may have ice chips. Dobhoff to right nare running. at 95ml/ hr. Residuals 0-5. Dressing to left calf c/d/i. Halo intact - pin sites cleaned with 1/2hydrogen peroxide, 1/2 water. On scheduled oxycodone and tylenol. Left subclavian dc'd at 2350. PIV to left forearm started. Small BM this shift. VSS on 2L of O2. Follow up: Sara when ready.
[2016-06-23 08:37] LABS: ANION GAP 10.1 (10.0-19.0); BLOOD UREA NITROGEN 24 mg/dL (6-24); CALCIUM 8.2 mg/dL (8.5-10.5); CHLORIDE 102 mMol/L (96-110); CO2 31 mMol/L (22-32); CREATININE 0.6 mg/dL (0.6-1.3); ESTIMATED GFR (MDRD EQUATION) > 60; MAGNESIUM 1.7 mg/dL (1.3-2.6); PHOSPHORUS 3.2 mg/dL (2.5-4.9); POTASSIUM 4.1 mMol/L (3.7-5.1); SODIUM 139 mMol/L (135-145)
[2016-06-23 08:51] LABS: HEMATOCRIT 21.8 % (37.0-53.0); MCH 30.5 pg (27.0-34.0); MCHC 31.7 gm/dL (32.0-36.5); MCV 96.5 fl (83.0-98.0); PLATELET COUNT 552 K/uL (150-450); RBC 2.26 M/uL (4.00-6.00); RDW-CV 14.6 % (11.9-14.6)
[2016-06-23 08:53] LABS: HEMOGLOBIN 6.9 g/dL (12.0-17.0); WBC 16.4 K/uL (4.0-11.0)
[2016-06-23 09:41] LABS: BANDED NEUTROPHILS % 6 %; MONOCYTE # 1.5 K/uL (0.0-1.0)
[2016-06-23 09:42] LABS: ABSOLUTE NEUTROPHIL CT (ANC) 10.2 K/uL (1.4-9.0); LYMPHOCYTE # 4.6 K/uL (0.8-4.0); LYMPHOCYTE % 28 %; SEGMENTED NEUTROPHIL # 9.2 K/uL (1.4-9.0); SEGMENTED NEUTROPHIL % 56 %
--- NOTE | 2016-06-23 15:22 | NUR ---
I did talk with Myranda with [facility] earlier this am and faxed updated notes. She states they now have a bed open and if pt is ready,stable, ok with md and if insurance approves could come tomorrow. Myranda states lasix iv and dobhoff are ok. I did touch base with Chana and thinks it is a possibilty and will discuss with DR Pearson and see how is labs are in the am. I then touched base with pt and explained he maybe could go Monday or Monday and he agree's to the plan. I explained I will touch base with his son to let him know as well per pt's request. I did call our EMS and placed on stand by. WIll continue to follow. I did get a hold of Jovon and he as well agree's to the plan. WIll continue to follow.
--- NOTE | 2016-06-23 16:11 | NUR ---
Significant Event: Patient alert and oriented x3. Denies numbness/tingling. Grasps strong and equal throughout. Halo in place. Pin sites cares done. VSS on 3L O2. Voids per urinal. Dobhoff to R) nare with tube feeds at 95 mL/hr. Darnell removed from upper back incision by today. Steri-strips in place now. Mepilex drsg to L) schreiber from bone graft. Chest tube sites to bilateral sides, open to air. On scheduled oxycodone and tylenol for pain. IV to L) FA, saline locked. No changes in patient condition throughout shift. Follow up: VS/neuros q 4 hours. Up with 2PA. NPO, may have ice chips with sips. Tube feeds. Madonna tomorrow?
[2016-06-24 03:58] LABS: HEMOGLOBIN 8.3 g/dL (12.0-17.0); MCH 30.5 pg (27.0-34.0); MCV 98.5 fl (83.0-98.0); MPV 8.8 fl (9.4-12.4); PLATELET COUNT 509 K/uL (150-450); RBC 2.72 M/uL (4.00-6.00); RDW-CV 14.6 % (11.9-14.6); WBC 15.7 K/uL (4.0-11.0)
[2016-06-24 04:00] LABS: HEMATOCRIT 26.8 % (37.0-53.0)
[2016-06-24 04:17] LABS: ANION GAP 12.1 (10.0-19.0); BLOOD UREA NITROGEN 21 mg/dL (6-24); CALCIUM 8.5 mg/dL (8.5-10.5); CHLORIDE 100 mMol/L (96-110); CO2 30 mMol/L (22-32); CREATININE 0.6 mg/dL (0.6-1.3); ESTIMATED GFR (MDRD EQUATION) > 60; MAGNESIUM 1.7 mg/dL (1.3-2.6); PHOSPHORUS 3.1 mg/dL (2.5-4.9); POTASSIUM 4.1 mMol/L (3.7-5.1); SODIUM 138 mMol/L (135-145)
--- NOTE | 2016-06-24 04:49 | NUR ---
Significant Event: A&0X3. Forgetful at times. Denies numbness and tingling. Equal strength leans towards the R) when ambulating. Up 2 assist GBW. On tele SR. VSS. 3L of O2 sats low 90s does desat when ambulating. Productive cough cleared with suction. Voids per urinal or bathroom. MOM given per pt request. Has Dobhoff in R) nare running promote at 95ml/hr. Is able to have sips of water with ice chips. Has Halo pin site cares BID. Upper back incision open to air with steri strips. Chest tube sites sutured and open to air. Bone graft site on L) schreiber meplex drsg c/d/i. IV to L) forearm SL. Follow up: Sara today?
[2016-06-24 05:09] LABS: ABSOLUTE NEUTROPHIL CT (ANC) 11.6 K/uL (1.4-9.0); BANDED NEUTROPHIL # 1.6 K/uL (0.0-0.1); BANDED NEUTROPHILS % 10 %; LYMPHOCYTE # 3.6 K/uL (0.8-4.0); LYMPHOCYTE % 23 %; MONOCYTE # 0.2 K/uL (0.0-1.0); SEGMENTED NEUTROPHIL # 10.1 K/uL (1.4-9.0); SEGMENTED NEUTROPHIL % 64 %
--- NOTE | 2016-06-24 10:58 | NUR ---
Patient alert and oriented X3. Denies N/T. Follows commands. Moves all limbs spontaneously. VSS. Afebrile. 3L NC with sats in the mid low to mid 90s. Lung sounds clear and diminished. Productive cough. Yellowish phlegm. Patient suctions self with yankour. Voids per urinal. BS active X4 Dobhoff to right nare. TF infusing at 95 ml/hr. No residuals. No intermittent flushes. Patient may have ice chips and water. Healing bialteral chest tube sites. Sutures removed this shift. Open to air. R) flank incision open to air. Halo in place. Pin site cares with hydrogen peroxide. Incision to upper back. Open to air. PIV to L) FA PIV SLL. 2 assist to get up and then 1 assist when up. Meds crushed in tube. Scheduled roxicodone given for pain. Patient to go to [facility] at 1130 via ambulance.
--- NOTE | 2016-06-24 11:45 | NUR ---
Significant Event: Please refer to transfer note. Patient transfered at 1145 via ambulance [address] [facility] in [place], [place]. Possessions with patient. Pleasant and cooperative with care. L) FA PIV left intact per EMS incase of pain issues. Follow up:
--- NOTE | 2016-06-24 12:39 | NUR ---
I did call Myranda this am and faxed updates labs. She will let me know if the insurance approves but looks like he could go if approved. I then got a call from Myranda and the insurance approved rehab and to have pt leave here around 12. She did give me number for nurse to nurse [phone] Pearson to call for md to md. I did update Dr Pearson and he will call. I then spoke with Myranda explaining he is unable to reach md. She stated she was sorry and does not need done to acute rehab. I did call DR Pearson back. I also spoke with pt and and udpated him that insurance approved and plan [id number] for transfer. He agree's to this and then I also called son Noé and he agree's and I gave him Myranda's number for any questions. Noé also stated he will update his family. At this time orders faxed and will assist as needed.
== END 2016-06-24 11:44 | DRG 957 ==
LOC: GACC 14:20 → GNTU 15:11 → GICU 15:11 → GNTU 15:11
PROVIDERS: Anesthesiology; Anesthesiology Critical Care Medicine; Emergency Medicine; Internal Medicine Critical Care Medicine; Orthopaedic Surgery; Physician Assistant; ADMIT Surgery
PROC: 0RG Upper Joints, Fusion (ICD-10-PCS; principal; 2016-06-12)
PROC: 0PS3XZZ Reposition Cervical Vertebra, External Approach (ICD-10-PCS; principal; 2016-06-12)
PROC: 0RB90ZZ Excision of Thoracic Vertebral Disc, Open Approach (ICD-10-PCS; principal; 2016-06-12)
PROC: 30233N1 Transfusion of Nonautologous Red Blood Cells into Peripheral Vein, Percutaneous Approach (ICD-10-PCS; principal; 2016-06-12)
PROC: 0QBK0ZZ Excision of Left Fibula, Open Approach (ICD-10-PCS; principal; 2016-06-12)
PROC: 8E0XXBZ Computer Assisted Procedure of Upper Extremity (ICD-10-PCS; principal; 2016-06-12)
PROC: 03HC33Z Insertion of Infusion Device into Left Radial Artery, Percutaneous Approach (ICD-10-PCS; principal; 2016-06-12)
PROC: 30233N0 Transfusion of Autologous Red Blood Cells into Peripheral Vein, Percutaneous Approach (ICD-10-PCS; principal; 2016-06-12)
PROC: 0W9B30Z Drainage of Left Pleural Cavity with Drainage Device, Percutaneous Approach (ICD-10-PCS; principal; 2016-06-12)
PROC: 0BH17EZ Insertion of Endotracheal Airway into Trachea, Via Natural or Artificial Opening (ICD-10-PCS; principal; 2016-06-12)
PROC: 0W9930Z Drainage of Right Pleural Cavity with Drainage Device, Percutaneous Approach (ICD-10-PCS; principal; 2016-06-12)
PROC: 5A1955Z Respiratory Ventilation, Greater than 96 Consecutive Hours (ICD-10-PCS; principal; 2016-06-12)
PROC: 8E09XBZ Computer Assisted Procedure of Head and Neck Region (ICD-10-PCS; principal; 2016-06-12)
PROC: 0RS Upper Joints, Reposition (ICD-10-PCS; principal; 2016-06-12)
PROC: 02HV33Z Insertion of Infusion Device into Superior Vena Cava, Percutaneous Approach (ICD-10-PCS; principal; 2016-06-12)
PROC: 0RG707J Fusion of 2 to 7 Thoracic Vertebral Joints with Autologous Tissue Substitute, Posterior Approach, Anterior Column, Open Approach (ICD-10-PCS; principal; 2016-06-12)
PROC: 2W60X0Z Traction of Head using Traction Apparatus (ICD-10-PCS; principal; 2016-06-12)
PROC: 30233N1 Transfusion of Nonautologous Red Blood Cells into Peripheral Vein, Percutaneous Approach (ICD-10-PCS; 2016-06-14)
PROC: 0DH67UZ Insertion of Feeding Device into Stomach, Via Natural or Artificial Opening (ICD-10-PCS; 2016-06-19)
PROC: 0DH67UZ Insertion of Feeding Device into Stomach, Via Natural or Artificial Opening (ICD-10-PCS; 2016-06-21)
DX: S22.052A Unstable burst fracture of T5-T6 vertebra, initial encounter for closed fracture (principal); S24.152A Other incomplete lesion at T2-T6 level of thoracic spinal cord, initial encounter; T81.19XA Other postprocedural shock, initial encounter; S27.0XXA Traumatic pneumothorax, initial encounter; J96.00 Acute respiratory failure, unspecified whether with hypoxia or hypercapnia; S12.500A Unspecified displaced fracture of sixth cervical vertebra, initial encounter for closed fracture; S12.112A Nondisplaced Type II dens fracture, initial encounter for closed fracture; J14 Pneumonia due to Hemophilus influenzae; J15.1 Pneumonia due to Pseudomonas; I95.9 Hypotension, unspecified; J95.821 Acute postprocedural respiratory failure; E87.2 Acidosis; S22.43XA Multiple fractures of ribs, bilateral, initial encounter for closed fracture; S27.322A Contusion of lung, bilateral, initial encounter; S22.20XA Unspecified fracture of sternum, initial encounter for closed fracture; D62 Acute posthemorrhagic anemia; D69.6 Thrombocytopenia, unspecified; S23.13 Subluxation and dislocation of T4/T5-T5/T6 thoracic vertebra; V58.5XXA Driver of pick-up truck or van injured in noncollision transport accident in traffic accident, initial encounter; M48.02 Spinal stenosis, cervical region; R00.0 Tachycardia, unspecified; Y83.8 Other surgical procedures as the cause of abnormal reaction of the patient, or of later complication, without mention of misadventure at the time of the procedure; S42.001A Fracture of unspecified part of right clavicle, initial encounter for closed fracture; Z82.49 Family history of ischemic heart disease and other diseases of the circulatory system; Z78.1 Physical restraint status; E11.9 Type 2 diabetes mellitus without complications
CPT/HCPCS: C1713; C9113; G0390; G0480; J0690; J0692; J1100; J1170; J1644; J1720; J1940; J1956; J2060; J2270; J2405; J2550; J2704; J3010; J3360; J3370; J3480; J7040; J7050; J7120; P9016; P9045

== ENCOUNTER → 2016-06-24 | Outpatient (CLI) | payer OTHER | END | disposition disaster alternative care site (69) | LOC: GAMB 11:54 | DX: S19.9XXA Unspecified injury of neck, initial encounter (principal); S12.9XXA Fracture of neck, unspecified, initial encounter; M54.2 Cervicalgia; X58.XXXA Exposure to other specified factors, initial encounter | CPT/HCPCS: A0422; A0425; A0428 ==

== ENCOUNTER → 2016-09-05 | Outpatient (CLI) | payer OTHER | END | disposition disaster alternative care site (69) | LOC: GRAD 11:34 | DX: M84.48XD Pathological fracture, other site, subsequent encounter for fracture with routine healing (principal); M50.322 Other cervical disc degeneration at C5-C6 level; M50.323 Other cervical disc degeneration at C6-C7 level ==